=== PATIENT | female | born 1955 | race Two or more races ===

== ENCOUNTER → 2024-06-09 | Outpatient (CLI) | payer MEDICAID ==
[~2024-06-09] MED LIST: EZ PAQUE SUSP 12OZ BTL ONE
--- NOTE | 2024-06-09 11:41 | DVH ---
XY ESOPHAGUS BARIUM SWALLOW, HISTORY: DYSPHASIA FOLLOWING UNSPECIFIED CEREBREO VASCULAR COMPARISON: None PROCEDURE: Under video fluoroscopic monitoring, the patient's oropharynx and cervical esophagus were observed in the lateral position swallowing barium contrast of varying thickness. A speech pathologis t was present and coordinated the examination. Images were recorded as cine clips. Total fluoroscopic time utilized was 0.4 minutes. DAP 28.8 FINDINGS: The patient swallowed Pudding and thin liquid containing barium contrast. The patient was able to initiate swallowing. Contrast was seen traversing the oropharynx, hypopharynx and cervical esophagus without obstruction. Tracheal aspiration was observed with thin barium. The p rocedure was stopped at that time. IMPRESSION: Tracheal aspiration was observed with thin barium. Please refer to the speech pathologist's note from today's date for additional information and treatm ent recommendations.
== END | disposition home or self-care (01) ==
LOC: XYW 10:06
DX: I69.991 Dysphagia following unspecified cerebrovascular disease (principal)
CPT/HCPCS: 74220